=== PATIENT | male | born 1970 | race African-American/Black ===

== ENCOUNTER → 2020-07-19 | Outpatient (CLI) | payer OTHER | LOC: LAB 07-18 12:25 | PROVIDERS: ATTEND Family Medicine | DX: U07.1 COVID-19 (principal) ==

== ENCOUNTER → 2021-01-07 | Outpatient (CLI) | payer OTHER | LOC: CAT 11:36 | PROVIDERS: ATTEND Family Medicine | DX: Z13.6 Encounter for screening for cardiovascular disorders (principal); I25.10 Atherosclerotic heart disease of native coronary artery without angina pectoris; E78.00 Pure hypercholesterolemia, unspecified ==